=== PATIENT | female | born 1965 | race Caucasian/White ===

== ENCOUNTER 2018-08-17 20:00 | Emergency (ER) | payer OTHER ==
[~2018-08-17] VITALS: Ht 157.5 cm; Wt 65.0 kg
[2018-08-17 20:10] VITALS: Ht 157.5 cm; Wt 65.0 kg
[2018-08-17] MEDS ORDERED: ASPIRIN 325 MG TAB PO STA (20:44)
[2018-08-17] MEDS ORDERED: SOD CHLORIDE 0.9% 1,000 ML IV STA (20:44)
[2018-08-17] MEDS ORDERED: NAPR-985 PO (22:28)
[2018-08-17 22:40] VITALS: BP 123/65; PULSE 54; RESP 18
--- NOTE | 2018-08-24 14:39 | ERD ---
ER Documentation Chief Complaint Chief Complaint pt c/o cp with exertion HPI This is a 52-year-old female that presents to the emergency department complaining of chest pain that has been present for the past 3 days. She indicated the chest pain and palpitations that occurred after cleaning. She states the chest pain is bilateral, does not radiate to the neck arm back or jaw. It is a sharp shooting pain but no pressure-like sensation however it is a sharp pain. The patient has no associated symptoms of nausea vomiting or diaphoresis. The patient has no family history of coronary artery disease in first-degree relatives. The patient denies any shortness of breath at rest or exertion. ROS All systems reviewed and are negative except as per history of present illness. Medications Home Meds Active Scripts Naproxen* (Naprosyn*) 500 Mg Tablet, 500 MG PO BID PRN for PAIN AND/OR INFLAMMATION, #30 TAB Prov:QI ADRIAN MD 08/17/18 Allergies Allergies: Coded Allergies: lidocaine (Verified Allergy, Severe, "stops breathing", 08/17/18) Penicillins (Verified Allergy, Unknown, itching, 08/17/18) ciprofloxacin (Verified Allergy, Unknown, 08/17/18) PMhx/Soc Medical and Surgical Hx: pt denies Medical Hx, pt denies Surgical Hx History of Surgery: No Anesthesia Reaction: No Hx Neurological Disorder: No Hx Respiratory Disorders: No Hx Cardiac Disorders: No Hx Psychiatric Problems: No Hx Miscellaneous Medical Probl: No Hx Alcohol Use: No Hx Substance Use: No Hx Tobacco Use: No Smoking Status: Never smoker Physical Exam Physical Exam Constitutional:Well-developed. Well-nourished. HEENT:Normocephalic. Atraumatic.Pupils were equal round reactive to light. Moist mucous membranes.No tonsillar exudates. Neck: No nuchal rigidity. No lymphadenopathy. No posterior cervical spine tenderness or step-offs. Respiratory: Not using accessory muscles of respiration.Lungs were clear to auscultation bilaterally. No rhonchi. No rales. No wheezing. Cardiovascular: Regular rate regular rhythm.No murmurs. No rubs were appreciated.S1, S2 normal. Distal pulses are palpable 2+ bilaterally. Bilateral reproducible chest wall tenderness with no crepitus no ecchymosis no flexion GI: Abdomen was soft. Nontender. Non Distended. No pulsatile abdominal masses or bruits. No rebound. No guarding. Bowel sounds were present and normal. Muscle skeletal: Full range of motion of both the upper and lower extremities bilaterally.Normal muscle tone.No assymetrical calf tenderness or swelling. Skin: No petechia, no purpura. No lesions on the palms or the soles of the feet. No maculopapular rash. NEURO: Patient was alert, awake, orientated x3.No facial droop. Gait observed and normal with no ataxia.Speech had regular rate and rhythm. No focal neurological deficits. Results 24 hrs Laboratory Tests Test 08/17/18 20:57 White Blood Count 5.5 10^3/ul Red Blood Count 3.95 10^6/ul Hemoglobin 11.6 g/dl Hematocrit 35.2 % Mean Corpuscular Volume 89.1 fl Mean Corpuscular Hemoglobin 29.4 pg Mean Corpuscular Hemoglobin Concent 33.0 g/dl Red Cell Distribution Width 12.8 % Platelet Count 233 10^3/UL Mean Platelet Volume 10.7 fl Immature Granulocytes % 0.200 % Neutrophils % 48.6 % Lymphocytes % 38.3 % Monocytes % 9.3 % Eosinophils % 2.9 % Basophils % 0.7 % Nucleated Red Blood Cells % 0.0 /100WBC Immature Granulocytes # 0.010 10^3/ul Neutrophils # 2.7 10^3/ul Lymphocytes # 2.1 10^3/ul Monocytes # 0.5 10^3/ul Eosinophils # 0.2 10^3/ul Basophils # 0.0 10^3/ul Nucleated Red Blood Cells # 0.0 10^3/ul Prothrombin Time 12.0 Sec Prothrombin Time Ratio 0.9 INR International Normalized Ratio 0.88 Activated Partial Thromboplast Time 31.2 Sec Sodium Level 142 mmol/L Potassium Level 3.7 mmol/L Chloride Level 106 mmol/L Carbon Dioxide Level 27 mmol/L Anion Gap 9 Blood Urea Nitrogen 20 mg/dl Creatinine 1.18 mg/dl Est Glomerular Filtrat Rate mL/min 48 mL/min Glucose Level 112 mg/dl Calcium Level 9.8 mg/dl Total Bilirubin 0.2 mg/dl Direct Bilirubin 0.00 mg/dl Indirect Bilirubin 0.2 mg/dl Aspartate Amino Transf (AST/SGOT) 23 IU/L Alanine Aminotransferase (ALT/SGPT) 16 IU/L Alkaline Phosphatase 92 IU/L Creatine Kinase 138 IU/L Creatine Kinase Index 0.4 Creatinine Kinase MB (Mass) 0.49 ng/ml Troponin I < 0.012 ng/ml B-Type Natriuretic Peptide 79 PG/ML Total Protein 7.9 g/dl Albumin 4.4 g/dl Globulin 3.50 g/dl Albumin/Globulin Ratio 1.25 Current Medications Medications Dose Sig/Julio Start Time Status Last (Trade) Ordered Route PRN Stop Time Admin Dose Reason Admin Sodium 1,000 ml @ Q1H STAT 08/17/18 DC 08/17/18 Chloride 1,000 mls/hr IV 20:44 08/17/18 21:20 21:43 Aspirin 325 mg ONCE STAT 08/17/18 DC 08/17/18 (Aspirin) PO 20:44 08/17/18 21:19 20:46 Procedures/MDM The patient presented to the emergency department complaining of chest pain. My clinical evaluation and workup was to distinguish minor causes of chest pain from acute life threatening cardiopulmonary causes such as myocardial infarction, pulmonary embolism, aortic dissection, esophageal rupture, cardiac tamponade, The patient was placed on a air sampling and monitoring, continuous pulse oximetry and IV access established by nursing staff. 12 Lead EKG tracing ordered and reviewed by myself showed: Sinus bradycardia 58 bpm and no arrhythmia. MO interval normal. QRS duration normal. No ST segment elevation No ST segment depression. No changes consistent with acute ischemia. The patients chest pain was reproduced by palpation and horizontal flexion of the arms. It was my clinical impression that the pain was a result of inflammation of the skin and subcutaneous structures of the chest wall versus myocardial ischemia. I felt the patient had low-risk chest pain and could t herefore be safely discharged with close follow-up. Departure Diagnosis: Primary Impression: Costochondritis, acute Additional Impression: Palpitations Condition: Fair Patient Instructions: CostochondrQI Fernandez MD Aug 24, 2018 14:39
== END 2018-08-17 22:55 | disposition home or self-care (01) ==
LOC: E/R 20:00
DX: M94.0 Chondrocostal junction syndrome [Tietze] (principal); R00.2 Palpitations
CPT/HCPCS: 71045; 80053; 82550; 82553; 83880; 84484; 85025; 85610; 85730; 93005; J7030; Z7610; 36415

== ENCOUNTER 2018-11-23 23:11 | Emergency (ER) | payer SELFPAY ==
[~2018-11-23] VITALS: Ht 157.5 cm; Wt 64.1 kg
[~2018-11-23 23:11] MED LIST: NAPR-985 PO
[2018-11-23 23:14] VITALS: BP 120/59; PULSE 62; RESP 16; Ht 157.5 cm; Wt 64.1 kg
[2018-11-23] MEDS ORDERED: LORA-441 PO (23:56)
--- NOTE | 2018-11-23 23:56 | ERD ---
ER Documentation Chief Complaint Chief Complaint Pt reports dental work today, a screw placed in lower mandible HPI 53 year old female presents to ED complaining of jaw pain x 3:00 pm. She reports that she went to the dentist today and had a screw placed into her teeth. She has been suffering from pain ever since the incident. She reports her pain is 10/10 intensity and does not radiate. Nothing makes the pain better or worse. Pt was given motrin from the dentist with mild relief of her pain. She denies any fevers, chills, or signs of infection. She states that she feels like she is SOB and is having dizziness. She denies feeling like this before. Past med hx: HLD, HTN, DM ROS All systems reviewed and are negative except as per history of present illness. Medications Home Meds Active Scripts Meclizine Hcl* (Antivert*) 12.5 Mg Tab, 12.5 MG PO Q6H PRN for DIZZINESS, #10 TAB Prov:GOOD FIELDS PA-C 11/24/18 Ibuprofen* (Motrin*) 800 Mg Tab, 800 MG PO Q6H PRN for PAIN AND OR ELEVATED TEMP, #20 TAB Prov:GOOD FIELDS PA-C 11/24/18 Lorazepam* (Ativan*) 0.5 Mg Tablet, 0.5 MG PO Q8H PRN for ANXIETY, #6 TAB Prov:GOOD FIELDS PA-C 11/23/18 Naproxen* (Naprosyn*) 500 Mg Tablet, 500 MG PO BID PRN for PAIN AND/OR INFLAMMATION, #30 TAB Prov:QI ADRIAN MD 08/17/18 Allergies Allergies: Coded Allergies: lidocaine (Verified Allergy, Severe, "stops breathing", 08/17/18) Penicillins (Verified Allergy, Unknown, itching, 08/17/18) acetaminophen (Verified Allergy, Unknown, anxiety, 11/23/18) ciprofloxacin (Verified Allergy, Unknown, 08/17/18) hydrocodone (Verified Allergy, Unknown, anxiety, 11/23/18) PMhx/Soc Medical and Surgical Hx: pt denies Medical Hx, pt denies Surgical Hx History of Surgery: No Anesthesia Reaction: No Hx Neurological Disorder: No Hx Respiratory Disorders: No Hx Cardiac Disorders: No Hx Psychiatric Problems: No Hx Miscellaneous Medical Probl: No Hx Alcohol Use: No Hx Substance Use: No Hx Tobacco Use: No FmHx Family History: No diabetes Physical Exam Vitals Vital Signs Date Temp Pulse Resp B/P (MAP) Pulse Ox O2 O2 Flow FiO2 Time Delivery Rate 11/23/18 98.7 62 16 120/59 100 23:14 (79) Physical Exam Const: No acute distress, appears anxious and nervous Head: Atraumatic Eyes: Normal Conjunctiva, PERRLA ENT: Normal External Ears, Nose and Mouth. Mouth: dental screw placed in upper left mandible, tenderness to Upper left mandible, no erythema, no pus/d/c, Neck: Full range of motion. No meningismus. Resp: Clear to auscultation bilaterally Cardio: Regular rate and rhythm, no murmurs Abd: Soft, non tender, non distended. Normal bowel sounds Skin: No petechiae or rashes Back: No midline or flank tenderness Ext: No cyanosis, or edema Neur: Awake and alert, CN 2-12 intact. no focal deficits, no pronator drift, equal strength and sensation bilat Psych: Normal Mood and Affect Results 24 hrs Current Medications Medications Dose Sig/Julio Start Time Status Last (Trade) Ordered Route PRN Stop Time Admin Dose Reason Admin Lorazepam 0.5 mg ONCE ONCE 11/24/18 DC 11/24/18 (Ativan) PO 00:00 00:04 11/24/18 00:01 Procedures/MDM ED COURSE: The patient was stable throughout ED course. I kept the patient informed of laboratory and diagnostic imaging results throughout the ED course. MEDICATIONS GIVEN: Ativan Patient tolerated medication well with no adverse reactions. Patient reported improvement in pain. MEDICAL DECISION MAKING: Patient is a 53 year old female complaining of left upper jaw pain since this afternoon. She went to the dentist and had dental work done. She appears very anxious and nervous. She was shaking when I first walked in but immediately stopped when I just began talking to her son. Physical exam was unremarkable. There was a screw like objection in the upper left mandible that did not look infected at all. At this time, I think the patient is suffering from anxiety. Pt was given ativan in the ED without any ASE or reactions. Her symptoms improved slightly. She was d/c with Ativan, Motrin, and Meclizine and was told to follow up with dentist tomm morning. I have low suspicion for cellulitis, dental abscess, osteomyelitis, tooth fracture. Vital signs were reviewed. Patient is afebrile. Patient was not hypoxic. Patient was hemodynamically stable. Patient was told to follow up with primary care for further care and management. PRESCRIPTION: Ativan, motrin, Meclizine, DISCHARGE: At this time, patient is stable for discharge and outpatient management. I have instructed the patient to follow-up with his/her primary care physician in 1-2 days. I have discussed with the patient the possibility of needing to see a specialist for further workup and imaging studies if symptoms persist. I have instructed the patient to promptly return to the ER for any new or worsening symptoms including increased pain, fever, nausea, vomiting, weakness or LOC. The patient expressed understanding of and agreement with this plan. All questions were answered. Home care instructions were provided. Disclaimer: Inadvertent spelling and grammatical errors are likely due to EHR/dictation software use and do not reflect on the overall quality of patient care. Also, please note that the electronic time recorded on this note does not necessarily reflect the actual time of the patient encounter. Departure Diagnosis: Primary Impression: Anxiety Additional Impression: Pain, dental Condition: Fair Patient Instructions: Anxiety Reaction, Dental Pain Referrals: [facility] YOU HAVE RECEIVED A MEDICAL SCREENING EXAM AND THE RESULTS INDICATE THAT YOU DO NOT HAVE A CONDITION THAT REQUIRES URGENT TREATMENT IN THE EMERGENCY DEPARTMENT. FURTHER EVALUATION AND TREATMENT OF YOUR CONDITION CAN WAIT UNTIL YOU ARE SEEN IN YOUR DOCTORS OFFICE WITHIN THE NEXT 1-2 DAYS. IT IS YOUR RESPONSIBILITY TO MAKE AN APPOINTMENT FOR FOLOW-UP CARE. IF YOU HAVE A PRIMARY DOCTOR --you should call your primary doctor and schedule an appointment IF YOU DO NOT HAVE A PRIMARY DOCTOR YOU CAN CALL OUR PHYSICIAN REFERRAL HOTLINE AT IF YOU CAN NOT AFFORD TO SEE A PHYSICIAN YOU CAN CHOSE FROM THE FOLLOWING [facility] [address] [facility] [address] [email or web address] [address] [facility] [address] [facility] [address] [facility] [facility]. [facility] [address] [facility]. [facility] YOU HAVE RECEIVED A MEDICAL SCREENING EXAM AND THE RESULTS INDICATE THAT YOU DO NOT HAVE A CONDITION THAT REQUIRES URGENT TREATMENT IN THE EMERGENCY DEPARTMENT. FURTHER EVALUATION AND TREATMENT OF YOUR CONDITION CAN WAIT UNTIL YOU ARE SEEN IN YOUR DOCTORS OFFICE WITHIN THE NEXT 1-2 DAYS. IT IS YOUR RESPONSIBILITY TO MAKE AN APPOINTMENT FOR FOLOW-UP CARE. IF YOU HAVE A PRIMARY DOCTOR --you should call your primary doctor and schedule and appointment IF YOU DO NOT HAVE A PRIMARY DOCTOR YOU CAN CALL OUR PHYSICIAN REFERRAL HOTLINE AT . IF YOU CAN NOT AFFORD TO SEE A PHYSICIAN YOU CAN CHOSE FROM THE FOLLOWING [facility] INSTITUTIONS: [facility] [address] [place] [address] [facility] [address] [place] [address] [facility] [address] [place] [address] Additional Instructions: Follow-up with dentist tomorrow morning Llame al doctor MAZOHRA y quang lorraine JUDI PARA DENTRO DE 1-2 WHEELER.Dgale a la secretaria que nosotros le instruimos hacer esta judi.Avise o llame si mcfarland condicin se empeora antes de la judi. Regresa aqui si peor o no mejor. GOOD FIELDS PA-C Nov 23, 2018 23:56
[2018-11-24] MEDS ORDERED: LORAZEPAM 0.5 MG TAB PO ONE
[2018-11-24] MEDS ORDERED: IBUP800T48 PO (00:19)
[2018-11-24] MEDS ORDERED: MECL12.574 PO (00:19)
== END 2018-11-24 00:23 | disposition home or self-care (01) ==
LOC: FTE 23:11
DX: F41.9 Anxiety disorder, unspecified (principal); I10 Essential (primary) hypertension; E11.9 Type 2 diabetes mellitus without complications
CPT/HCPCS: 99283